=== PATIENT | female | born 1990 | race Caucasian/White ===

== ENCOUNTER 2017-06-21 10:35 | Emergency (ER) | payer SELFPAY ==
[2017-06-21] MEDS ORDERED: PENICILLIN G BENZATHINE 1.2 MILLION UNIT/2 ML DISP.SYRIN IM ONE (10:51)
[2017-06-21] MEDS ORDERED: DEXAMETHASONE 4 MG TABLET PO ONE (10:51)
[2017-06-21] MEDS ORDERED: LIDOCAINE 2% VISCOUS SOLN 20 ML UDCUP PO ONE (10:51)
[2017-06-21] MEDS ORDERED: IBUPROFEN 800 MG TABLET PO ONE (10:53)
--- NOTE | 2017-06-21 10:54 | ER Document Report ---
HPI - HPI Patient complains to provider of: sore throat Onset: Other - 3 days Onset/Duration: Persistent Quality of pain: Achy Pain Level: 4 Context: Patient presents complaining of sore throat with subjective fever for the past 3 days. Patient complains of tender, enlarged lymph nodes to her neck. Associated Symptoms: Nonproductive cough, Fever, Sore throat. denies: Chills, Earache Exacerbated by: Denies Relieved by: Denies Similar symptoms previously: Yes Recently seen / treated by doctor: No - ROS ROS below otherwise negative: Yes Systems Reviewed and Negative: Yes All other systems reviewed and negative - CONSTITUTIONAL Constitutional: REPORTS: Fever - EENT EENT: REPORTS: Sore Throat. DENIES: Ear Pain - RESPIRATORY Respiratory: REPORTS: Coughing - GASTROINTESTINAL Gastrointestinal: DENIES: Nausea, Patient vomiting - DERM Skin Color: Normal Skin Problems: None Past Medical History - General Information source: Patient - Social History Smoking Status: Current Every Day Smoker Frequency of alcohol use: Occasional Drug Abuse: None Occupation: [employer] Family History: Reviewed & Not Pertinent Patient has suicidal ideation: No Patient has homicidal ideation: No - Medical History Medical History: Negative Renal/ Medical History: Denies: Hx Peritoneal Dialysis Surgical Hx: Negative Vertical Provider Document - CONSTITUTIONAL Agree With Documented VS: Yes Exam Limitations: No Limitations General Appearance: WD/WN, No Apparent Distress - INFECTION CONTROL TRAVEL OUTSIDE OF THE [place] IN LAST 30 DAYS: No - HEENT HEENT: Atraumatic, Normocephalic, Pharyngeal Tenderness, Pharyngeal Erythema. negative: Pharyngeal Exudate, Tympanic Membrane Red, Tympanic Membrane Bulging - NECK Neck: Lymphadenopathy-Left, Lymphadenopathy-Right - RESPIRATORY Respiratory: Breath Sounds Normal, No Respiratory Distress, Chest Non-Tender O2 Sat by Pulse Oximetry: 98 - CARDIOVASCULAR Cardiovascular: Regular Rate, Regular Rhythm, No Murmur - BACK Back: Normal Inspection - MUSCULOSKELETAL/EXTREMETIES Musculoskeletal/Extremeties: MAEW - NEURO Level of Consciousness: Awake, Alert, Appropriate Motor/Sensory: No Motor Deficit - DERM Integumentary: Warm, Dry, No Rash Course - Vital Signs Vital signs: Temp Pulse Resp BP Pulse Ox 99.6 F 98 14 136/83 H 98 06/21/17 10:38 06/21/17 10:38 06/21/17 10:38 06/21/17 10:38 06/21/17 10:38 Discharge - Discharge Clinical Impression: Tonsillitis Condition: Stable Disposition: HOME, SELF-CARE Instructions: Corticosteroid Medication ([facility]), Tonsillitis ([facility]), Antibiotic Shot ([facility]) Additional Instructions: Return immediately for any new or worsening symptoms Followup with your primary care provider, call tomorrow to make a followup appointment Prescriptions: Naproxen [Naprosyn 250 Nmg Tablet] 1 tab PO BID #14 tablet Forms: Return to Work Referrals: [facility] [Provider Group] - Follow up as needed
[2017-06-21 11:51] VITALS: BP 122/78
== END 2017-06-21 11:52 | disposition home or self-care (01) ==
LOC: ER 10:35
DX: J03.90 Acute tonsillitis, unspecified (principal); R05 Cough; R59.0 Localized enlarged lymph nodes; F17.200 Nicotine dependence, unspecified, uncomplicated
CPT/HCPCS: 99282; 96372; J3490; J0561

== ENCOUNTER 2018-04-23 16:28 | Emergency (ER) | payer SELFPAY ==
[2018-04-23 16:36] VITALS: BP 137/94
[2018-04-23] MEDS ORDERED: ONDANSETRON 4 MG TAB.RAPDIS PO ONE (17:01)
[2018-04-23] MEDS ORDERED: CEFTRIAXONE INJ 250 MG VIAL IM ONE (17:01)
[2018-04-23] MEDS ORDERED: AZITHROMYCIN 250 MG TABLET PO ONE (17:01)
--- NOTE | 2018-04-23 17:01 | ER Document Report ---
ED GI/ - General Chief Complaint: Pelvic Pain Stated Complaint: VAGINAL PAIN Time Seen by Provider: 04/23/18 16:56 Mode of Arrival: Ambulatory Information source: Patient Notes: 27 yo female c/o pelvic pain or left side, worse in am, better with ibuprofen and when she gets busy. Spotting since tuesday with "weird smell". IUD place 2016. Hx STD chlamydia before IUD. New sexual without condoms, first time last weekend. Can feel the IUD string. TRAVEL OUTSIDE OF THE [place] IN LAST 30 DAYS: No - Related Data Allergies/Adverse Reactions: No Known Allergies Allergy (Verified 04/23/18 17:01) Past Medical History - General Information source: Patient - Social History Smoking Status: Current Every Day Smoker Frequency of alcohol use: None Drug Abuse: None Lives with: Family Family History: Reviewed & Not Pertinent Renal/ Medical History: Denies: Hx Peritoneal Dialysis Past Surgical History: Reports: None Review of Systems - Review of Systems Constitutional: No symptoms reported EENT: No symptoms reported Cardiovascular: No symptoms reported Respiratory: No symptoms reported Gastrointestinal: No symptoms reported Genitourinary: No symptoms reported Female Genitourinary: See HPI Musculoskeletal: No symptoms reported Skin: No symptoms reported Hematologic/Lymphatic: No symptoms reported Neurological/Psychological: No symptoms reported Physical Exam - Vital signs Vitals: Temp Pulse Resp BP Pulse Ox 99.7 F 104 H 16 137/94 H 96 04/23/18 16:34 04/23/18 16:34 04/23/18 16:34 04/23/18 16:34 04/23/18 16:34 Interpretation: Normal - General General appearance: Appears well, Alert - HEENT Head: Normocephalic, Atraumatic Eyes: Normal Pupils: PERRL - Respiratory Respiratory status: No respiratory distress Chest status: Nontender Breath sounds: Normal Chest palpation: Normal - Cardiovascular Rhythm: Regular Heart sounds: Normal auscultation Murmur: No - Abdominal Inspection: Normal Distension: No distension Bowel sounds: Normal Tenderness: Tender - mild left pelvic and suprapubic Organomegaly: No organomegaly - Genitourinary External exam: Normal Speculum exam: Cervix closed, Vaginal discharge - Foul-smelling yellow discharge , Other - IUD strings are normal length Bimanuel exam: No: Cervical motion tender, Adnexal tenderness - Back Back: Normal, Nontender. No: CVA tenderness - Extremities General upper extremity: Normal inspection, Nontender, Normal color, Normal ROM , Normal temperature General lower extremity: Normal inspection, Nontender, Normal color, Normal ROM , Normal temperature, Normal weight bearing. No: Jorge's sign - Neurological Neuro grossly intact: Yes Cognition: Normal Orientation: AAOx4 Janes Coma Scale Eye Opening: Spontaneous [place] Coma Scale Verbal: Oriented Janes Coma Scale Motor: Obeys Commands [place] Coma Scale Total: 15 Speech: Normal Motor strength normal: LUE, RUE, LLE, RLE Sensory: Normal - Psychological Associated symptoms: Normal affect, Normal mood - Skin Skin Temperature: Warm Skin Moisture: Dry Skin Color: Normal Course - Re-evaluation Re-evalutation: 04/23/18 18:02 IUD in appropriate location otherwise negative pelvic ultrasound there is no TOA , cyst, or torsion. The test is negative. The urinalysis shows 21 white blood cells with a trace of bacteria, her wet prep shows no trichomonas or yeast but 4+ WBC, 2+ RBC, 3+ bacteria. 04/23/18 18:03 - Vital Signs Vital signs: Temp Pulse Resp BP Pulse Ox 99.7 F 104 H 16 137/94 H 96 04/23/18 16:34 04/23/18 16:34 04/23/18 16:34 04/23/18 16:34 04/23/18 16:34 - Laboratory Laboratory results interpreted by me: 04/23/18 17:09 Urine Blood SMALL H Urine Urobilinogen 4.0 H Ur Leukocyte Esterase MODERATE H Discharge - Discharge Clinical Impression: pelvic pain, IUD (intrauterine device) in place, Vaginal discharge Urinary tract infection Qualifiers: Urinary tract infection type: site unspecified Hematuria presence: without hematuria Qualified Code(s): N39.0 - Urinary tract infection, site not specified Condition: Good Disposition: HOME, SELF-CARE Instructions: Cephalexin ([facility]), Pelvic Pain ([facility]), Urinary Tract Infection ([facility] ), Rocephin ([facility]), Azithromycin ([facility]) Additional Instructions: Call me in 2 hours at [phone] for the STD culture results Take the cephalexin, the urine culture is pending You were treated with Rocephin for possible gonorrhea You are treated with azithromycin for possible chlamydia You are treated with metronidazole for vaginal discharge, do not drink alcohol when you take this medication See the health department on Tuesday as planned Do not have intercourse until you find out about the STD culture results. If they are positive the partner needs to be treated Forms: Return to Work
[2018-04-23 17:27] LABS: AMORPHOUS SEDIMENT,URINE TRACE /HPF; APPEARANCE,URINE CLOUDY; BILIRUBIN,URINE NEGATIVE (NEGATIVE); COLOR,URINE YELLOW; GLUCOSE, URINE NEGATIVE (NEGATIVE); KETONES,URINE NEGATIVE (NEGATIVE); LEUKOCYTE ESTERASE,URINE MODERATE (NEGATIVE); NITRITE,URINE NEGATIVE (NEGATIVE); PROTEIN,URINE NEGATIVE (NEGATIVE); URINE SPECIFIC GRAVITY 1.025
[2018-04-23 17:34] LABS: BACTERIA (WET MOUNT) 3+ BACTERIA SEEN; RBCS (WET MOUNT) 2+ RBCS SEEN; T.VAGINALIS (WET MOUNT) NO TRICHOMONAS SEEN; WBCS (WET MOUNT) 4+ WBCS SEEN; YEAST (WET MOUNT) NO YEAST SEEN
[2018-04-23] MEDS ORDERED: METRONIDAZOLE 500 MG TABLET PO ONE (17:58)
--- NOTE | 2018-04-23 17:58 | RADIOLOGY REPORT (SQ) ---
EXAM DESCRIPTION: U/S NON OB PEL TV W/DOPPLER COMPLETED DATE/TIME: 04/23/2018 5:49 pm REASON FOR STUDY: pelvic pain, IUD discharge COMPARISON: None. TECHNIQUE: Dynamic and static grayscale images acquired of the pelvis via transvaginal approach and recorded on PACS. Additional selected color Doppler and spectral images recorded. LIMITATIONS: None. FINDINGS: UTERUS: Contour normal. No mass. ENDOMETRIAL STRIPE: No focal or generalized thickening. IUD. CERVIX: No nabothian cysts. RIGHT OVARY AND DOPPLER: Normal size. No worrisome masses. Normal arterial vascular flow without evid ence for torsion. LEFT OVARY AND DOPPLER: Normal size. No worrisome masses. Normal arterial vascular flow without evide nce for torsion. FREE FLUID: None noted. OTHER: No other significant finding. MEASUREMENTS: UTERUS: 6.2 x 2.9 x 4.1 cm ENDOMETRIAL STRIPE: 1 mm RIGHT OVARY: 4.0 x 2.5 x 2.6 cm LEFT OVARY: 3.6 x 2.8 x 2.3 cm IMPRESSION: NORMAL TRANSVAGINAL PELVIC ULTRASOUND. TECHNICAL DOCUMENTATION: JOB ID: [id number]- All Rights Reserved Rev Reading location - IP/workstation name: [email or web address]
[2018-04-23] MEDS ORDERED: LIDOCAINE 1% INJ-PF (10 MG/ML) 30 ML SDV INJ ONE (18:10)
[2018-04-23 18:58] LABS: CHLAM PCR NOT DETECTED (NOT DETECT); GON PCR DETECTED (NOT DETECT)
== END 2018-04-23 18:40 | disposition home or self-care (01) ==
LOC: ER 16:28
DX: N39.0 Urinary tract infection, site not specified (principal); R10.2 Pelvic and perineal pain; N89.8 Other specified noninflammatory disorders of vagina; F17.200 Nicotine dependence, unspecified, uncomplicated; Z97.5 Presence of (intrauterine) contraceptive device
CPT/HCPCS: 99284; 96372; 87210; 81025; 81001; 87491; 87591; 76830; 93976; S0119; J3490; J0696